=== PATIENT | male | born 1970 | race Caucasian/White ===

== ENCOUNTER 2016-08-06 07:07 | Day surgery (SDC) | payer BC ==
[2016-08-06] VITALS (8 sets, daily range): BP systolic 114–125; BP diastolic 75–83
[~2016-08-06] VITALS: Ht 182.9 cm; Wt 88.5 kg
[~2016-08-06 07:07] MED LIST: NEXIUM40 MG ORAL; TYLENOL650 MG/20. ORAL
[2016-08-06] MEDS ORDERED: NKM (07:38)
--- NOTE | 2016-08-06 09:29 | Pre-Procedure Note/Attestation ---
Pre-Procedure Note/Attestation Complete Prior to Procedure Planned Procedure: not applicable Procedure Narrative: colonoscopy Indications for Procedure Pre-Operative Diagnosis: h/o colon polyps Attestation I attest that I discussed the nature of the procedure; its benefits; risks and complications; and alternatives (and the risks and benefits of such alternatives ), prior to the procedure, with the patient (or the patient's legal operations support representative). I attest that, if there was a reasonable possibility of needing a blood transfusion, the patient (or the patient's legal operations support representative) was given the [facility] standardized written summary, pursuant to the [place] Blood Safety Act ([place] Health and Safety Code # 1645, as amended). I attest that I re-evaluated the patient just prior to the surgery and that there has been no change in the patient's H&P, except as documented below: ZULEIMA BREWER August 06, 2016 09:29
[2016-08-06] MEDS ORDERED: Propofol 10mg/ml 20ml IV ONE (09:30)
--- NOTE | 2016-08-06 09:30 | Short Stay Surgery H&P ---
History of Present Illness History of Present Illness Chief Complaint h/o colon polyps HPI Herminio Jaimes is a 46 year old male who was admitted on for Colon Screening Patient History Allergies: Coded Allergies: NO KNOWN DRUG ALLERGIES (Verified Allergy, Unknown, 10/09/14) PAST MEDICAL HISTORY: (1) Colon polyp (2) Submucosal lesion of esophagus Past Surgeries: Social History: Medication History Scheduled No Known Medications* (NKM - No Known Medications*), 0 ., (Reported) Discontinued Medications Acetaminophen (Acetaminophen), 650 MG ORAL Q6H PRN for Prn Headache/Temp > 101, (Reported) Discontinued Reason: Pt stopped taking med Esomeprazole Magnesium (Nexium), 40 MG ORAL DAILY, (Reported) Discontinued Reason: Pt stopped taking med Review of Systems Cardiovascular: Reports: no symptoms Respiratory: Reports: no symptoms Skeletal: Reports: no symptoms Gastrointestinal: Reports: no symptoms Genitourinary: Reports: no symptoms Neurologic: Reports: no symptoms Endocrine: Reports: no symptoms Hematologic: Reports: no symptoms Physical Exam Vital Signs Last Vital Signs Date Time Temp Pulse Resp B/P Pulse Ox O2 Delivery O2 Flow Rate FiO2 08/06/16 07:32 97.4 65 18 125/83 100 Room Air Skin: normal HENT: normal Heart: normal Lungs: normal Abdomen: normal Extremities: normal Plan Plan of Care colonoscopy Final Diagnosis: Attestation Are the patient's medical conditions optimized for surgery? Attestation Response: yes ZULEIMA BREWER August 06, 2016 09:30
--- NOTE | 2016-08-06 09:53 | Anethesia Preoperative Eval ---
Anesthesia Pre-op PMH/ROS General Date of Evaluation: August 06, 2016 Time of Evaluation: 09:32 Anesthesiologist: kwabena ASA Score: ASA 2 Mallampati Score Class I : Soft palate, uvula, fauces, pillars visible Class II: Soft palate, uvula, fauces visible Class III: Soft palate, base of uvula visible Class IV: Only hard plate visible Mallampati Classification: Class II Surgeon: ricky Diagnosis: hx colon polyps Surgical Procedure: colonoscopy Anesthesia History: none Allergies: Coded Allergies: NO KNOWN DRUG ALLERGIES (Verified Allergy, Unknown, 10/09/14) Past Medical History Cardiovascular: Reports: arrhythmia - PVCs Gastrointestinal/Genitourinary: Reports: other - gastric ulcer Anesthesia Pre-op Phys. Exam Physician Exam Last Vital Signs Date Time Temp Pulse Resp B/P Pulse Ox O2 Delivery O2 Flow Rate FiO2 08/06/16 07:32 97.4 65 18 125/83 100 Room Air Airway Exam Mallampati Score: Class II Teeth: intact Anesthesia Pre-op A/P Risk Assessment & Plan Plan: propofol Status Change Before Surgery: Juan Daniel Rodriguez MD August 06, 2016 09:53
--- NOTE | 2016-08-06 09:54 | Immediate Post-Op Evaluation ---
Immediate Post-Op Evalulation Immediate Post-Op Evalulation Date of Evaluation: August 06, 2016 Time of Evaluation: 10:15 IV Fluids: 600 Blood Pressure Systolic: 124 Blood Pressure Diastolic: 73 Pulse Rate: 48 Respiratory Rate: 16 O2 Sat by Pulse Oximetry: 100 Temperature (Fahrenheit): 97.4 Pain Score (1-10): 0 Nausea: No Vomiting: No Complications none Patient Status: awake, patent, none Hydration Status: adequate Juan Daniel Ventura MD August 06, 2016 09:54
--- NOTE | 2016-08-06 09:55 | 48 Hour Post Anesthesia Eval ---
Post Anesthesia Evaluation Date of Evaluation: August 06, 2016 Time of Evaluation: 10:30 Blood Pressure Systolic: 122 0: 75 Pulse Rate: 49 Respiratory Rate: 20 Temperature (Fahrenheit): 97.4 O2 Sat by Pulse Oximetry: 100 Airway: patent Nausea: No Vomiting: No Pain Intensity: 0 Hydration Status: adequate Cardiopulmonary Status: stable Mental Status/LOC: patient returned to baseline Follow-up Care/Observations: n/a Post-Anesthesia Complications: tolerated well Follow-up care needed: ready to discharge Juan Daniel Ventura MD August 06, 2016 09:55
--- NOTE | 2016-08-06 10:00 | Endoscopy Procedure Note ---
Endoscopy Procedure Note Indication for Procedure: colon polyps Procedures Performed: colonoscopy Operative Findings/Diagnosis: one polyp Specimen: yes Pt Tolerated Procedure Well: Yes Estimated Blood Loss: none Anesthesiologist: kwabena Anesthesia: MAC Implant(s) used?: No 50 yrs or older w/o bx or poly: No 10yrs. F/U not recommended: Yes If not recommended, why?: Above average risk 10 yrs. F/U needed: Yes 18 years or older w/prev. colo: Yes <3yrs. since last colonoscopy: No ZULEIMA BREWER August 06, 2016 10:00
--- NOTE | 2016-08-06 19:01 | Procedure Note ---
DATE OF PROCEDURE: 08/06/2016 SURGEON: Sammy Guerrero M.D. PROCEDURE: Colonoscopy with biopsy. ANESTHESIOLOGIST: Juan Daniel Ventura M.D. INSTRUMENT: Olympus adult flexible colonoscope. INDICATION: History of colonic polyps. REASON FOR PROCEDURE: The procedure, risks, benefits, and possible consequences, including hemorrhage, aspiration, perforation and infection, and alternative treatments, were explained to the patient/legal guardian by Dr. Smamy Guerrero and the patient/legal guardian understood and accepted these risks. DESCRIPTION OF PROCEDURE: After informed consent was obtained and the patient was adequately sedated, Olympus upper endoscope was advanced from mouth into the second portion of duodenum and retroflexion was performed in the stomach. The patient had evidence of diverticulosis in the left colon and in the rectum, there was one diminutive polyp in the rectum, which was removed. Retroflexion of rectum showed evidence of few small nonbleeding internal hemorrhoids. The patient tolerated the procedure well without any complication. Quality of prep was very good. SUMMARY OF FINDINGS: 1. Internal hemorrhoids. 2. One colonic polyp removed, see above for details. 3. Diverticulosis. RECOMMENDATIONS: 1. Follow up biopsies and treat accordingly. 2. We will recommend repeat colonoscopy in five years. Sammy Guerrero M.D. DR: YOSSI JOB#: [id number] CC:
== END 2016-08-06 11:00 | disposition home or self-care (01) ==
LOC: GAS 07:07
DX: Z12.11 Encounter for screening for malignant neoplasm of colon (principal); K62.1 Rectal polyp; K64.8 Other hemorrhoids; Z86.010 Personal history of colon polyps; K57.30 Diverticulosis of large intestine without perforation or abscess without bleeding; I49.3 Ventricular premature depolarization; Z87.11 Personal history of peptic ulcer disease
CPT/HCPCS: 45380; J2704; 94003; 94150

== ENCOUNTER 2019-05-30 07:34 | Day surgery (SDC) | payer BC ==
[2019-05-30] VITALS (10 sets, daily range): BP systolic 101–126; BP diastolic 56–90
[~2019-05-30] VITALS: Ht 182.9 cm; Wt 86.2 kg
[~2019-05-30 07:34] MED LIST changes: +LR 1000ml 1,000 ML IVLG SCH; +NKM
[2019-05-30] MEDS ORDERED: Midazolam 2mg/2ml Inj ONE (07:43)
[2019-05-30] MEDS ORDERED: fentaNYL 100 mcg/2 mL IV ONE (07:43)
[2019-05-30] MEDS ORDERED: PRAVASTATIN SOD20 M1 ORAL (08:16)
--- NOTE | 2019-05-30 08:56 | Pre-Procedure Note/Attestation ---
Pre-Procedure Note/Attestation Complete Prior to Procedure Planned Procedure: not applicable Procedure Narrative: esophagogastroduodenoscopy and colonoscopy Indications for Procedure Pre-Operative Diagnosis: screening colon, GERD Attestation I attest that I discussed the nature of the procedure; its benefits; risks and complications; and alternatives (and the risks and benefits of such alternatives ), prior to the procedure, with the patient (or the patient's legal development representative). I attest that, if there was a reasonable possibility of needing a blood transfusion, the patient (or the patient's legal development representative) was given the [facility] standardized written summary, pursuant to the [place] Blood Safety Act ([place] Health and Safety Code # 1645, as amended). I attest that I re-evaluated the patient just prior to the surgery and that there has been no change in the patient's H&P, except as documented below: Sammy Guerrero MD May 30, 2019 08:56
--- NOTE | 2019-05-30 08:58 | Short Stay Surgery H&P ---
History of Present Illness History of Present Illness Chief Complaint screening colon, GERD HPI Herminio Jaimes is a 48 year old male who was admitted on for Screening And Gerd Patient History Allergies: Coded Allergies: NO KNOWN DRUG ALLERGIES (Verified Allergy, Unknown, 10/09/14) PAST MEDICAL HISTORY: (1) Submucosal lesion of esophagus (2) Colon polyp Medication History Scheduled No Known Medications* (NKM - No Known Medications*), 0 ., (Reported) Pravastatin Sod* (Pravastatin Sod*), 20 MG ORAL BEDTIME, (Reported) Review of Systems Cardiovascular: Reports: no symptoms Respiratory: Reports: no symptoms Skeletal: Reports: no symptoms Gastrointestinal: Reports: no symptoms Genitourinary: Reports: no symptoms Neurologic: Reports: no symptoms Endocrine: Reports: no symptoms Physical Exam Vital Signs Last Vital Signs Date Time Temp Pulse Resp B/P (MAP) Pulse Ox O2 Delivery O2 Flow Rate FiO2 05/30/19 08:29 Room Air 05/30/19 08:19 97.4 61 18 120/90 100 Skin: normal HENT: normal Heart: normal Lungs: normal Abdomen: normal Extremities: normal Plan Plan of Care esophagogastroduodenoscopy and colonoscopy Attestation Are the patient's medical conditions optimized for surgery? Attestation Response: yes Sammy Guerrero MD May 30, 2019 08:58
[2019-05-30] MEDS ORDERED: Propofol 200mg/20ml IV ONE (09:00)
[2019-05-30] MEDS ORDERED: LR 1000ml ONE (09:00)
[2019-05-30] MEDS ORDERED: LR 1000ml 1,000 ML IVLG SCH (09:31)
--- NOTE | 2019-05-30 09:31 | Anethesia Preoperative Eval ---
Anesthesia Pre-op PMH/ROS General Date of Evaluation: May 30, 2019 Time of Evaluation: 08:50 Anesthesiologist: Abbey ASA Score: ASA 2 Mallampati Score Class I : Soft palate, uvula, fauces, pillars visible Class II: Soft palate, uvula, fauces visible Class III: Soft palate, base of uvula visible Class IV: Only hard plate visible Mallampati Classification: Class II Surgeon: Cesar Diagnosis: GERD Surgical Procedure: EGD Colonoscopy Anesthesia History: none Family History: no anesthesia problems Allergies: Coded Allergies: NO KNOWN DRUG ALLERGIES (Verified Allergy, Unknown, 10/09/14) Medications: see eMAR Patient NPO?: Yes Past Medical History Cardiovascular: Denies: HTN, CAD, [place], valve dz, arrhythmia, other Pulmonary: Denies: asthma, COPD, AKUA, other Gastrointestinal/Genitourinary: Reports: GERD, other - colonic polyps; Denies: CRI, ESRD Neurologic/Psychiatric: Denies: dementia, CVA, depression/anxiety, TIA, other Endocrine: Denies: DM, hypothyroidism, steroids, other HEENT: Denies: cataract (L), cataract (R), glaucoma, [place] (L), [place] (R), other Hematology/Immune: Denies: anemia, DVT, bleeding disorder, other Musculoskeletal/Integumentary: Denies: OA, RA, DJD, DDD, edema, other PMH Narrative: as above PSxH Narrative: Colonoscopy Anesthesia Pre-op Phys. Exam Physician Exam Last Vital Signs Date Time Temp Pulse Resp B/P (MAP) Pulse Ox O2 Delivery O2 Flow Rate FiO2 05/30/19 08:29 Room Air 05/30/19 08:19 97.4 61 18 120/90 100 Constitutional: NAD Neurologic: CN 2-12 intact Cardiovascular: RRR, no M/R/G Respiratory: CTA Gastrointestinal: S/NT/ND Airway Exam Mallampati Score: Class II MO: full Neck: flexible ROM: full Teeth: intact Dentures: no upper, no lower Anesthesia Pre-op A/P Labs see chart Studies Pre-op Studies: EKG - NSR Risk Assessment & Plan Assessment: ASA 2 Plan: MAC Status Change Before Surgery: César Kelly MD May 30, 2019 09:31
--- NOTE | 2019-05-30 09:39 | Endoscopy Procedure Note ---
Endoscopy Procedure Note General Indication for Procedure: screening colon, GRD Procedures Performed: EGD, colonoscopy Operative Findings/Diagnosis: duodenal polyp, diverticulosis Specimen: yes Pt Tolerated Procedure Well: Yes Estimated Blood Loss: none Anesthesia Anesthesiologist: mariah Anesthesia: MAC Inserted Devices Implant(s) used?: No Quality Quality of Bowel Preparation: Excellent Did scope reach the cecum?: Yes Was there any complications?: No GI Core Measures 50 yrs or older w/o bx or poly: No 10yrs. F/U recommended: Yes If not recommended, why?: Above average risk 18 years or older w/prev. colo: No Sammy Guerrero MD May 30, 2019 09:39
[2019-05-30] MEDS ORDERED: fentaNYL 100 mcg/2 mL IV PRN (09:45)
--- NOTE | 2019-05-30 09:48 | Immediate Post-Op Evaluation ---
Immediate Post-Op Evalulation Immediate Post-Op Evalulation Procedure: EGD polipectomy colonoscopy Date of Evaluation: May 30, 2019 Time of Evaluation: 09:47 IV Fluids: 800 Blood Products: none Estimated Blood Loss: none Urinary Output: none Blood Pressure Systolic: 116 Blood Pressure Diastolic: 58 Pulse Rate: 64 Respiratory Rate: 20 O2 Sat by Pulse Oximetry: 99 Temperature (Fahrenheit): 97.6 Pain Score (1-10): 1 Nausea: No Vomiting: No Complications none Patient Status: awake, patent, none Hydration Status: adequate César Potter MD May 30, 2019 09:48
--- NOTE | 2019-05-30 13:33 | 48 Hour Post Anesthesia Eval ---
Post Anesthesia Evaluation Procedure: EGD polipectomy colonoscopy Date of Evaluation: May 30, 2019 Time of Evaluation: 13:32 Blood Pressure Systolic: 116 0: 72 Pulse Rate: 68 Respiratory Rate: 18 Temperature (Fahrenheit): 97.6 O2 Sat by Pulse Oximetry: 98 Airway: patent Nausea: No Vomiting: No Pain Intensity: 2 Hydration Status: adequate Cardiopulmonary Status: stable Mental Status/LOC: patient returned to baseline Follow-up Care/Observations: n/a Post-Anesthesia Complications: none Follow-up care needed: ready to discharge César Potter MD May 30, 2019 13:33
--- NOTE | 2019-05-30 16:15 | Procedure Note ---
DATE OF PROCEDURE: 05/30/2019 SURGEON: Sammy Guerrero M.D. PROCEDURE: 1. Upper endoscopy with biopsy and polypectomy. 2. Colonoscopy. ANESTHESIA: Per Dr. Potter. INSTRUMENT: Olympus adult flexible upper endoscope and colonoscope. INDICATIONS: Screening colonoscopy evaluation, chronic GERD, history of esophageal submucosal lesion. REASON FOR PROCEDURE: The procedure, risks, benefits, and possible consequences, including hemorrhage, aspiration, perforation and infection, and alternative treatments, were explained to the patient/legal guardian by Dr. Sammy Guerrero and the patient/legal guardian understood and accepted these risks. PROCEDURE IN DETAIL: After informed consent was obtained and the patient was adequately sedated, Olympus upper endoscope was advanced from mouth into the second portion of duodenum and retroflexion was performed in the stomach. The patient had evidence of a submucosal lesion measured roughly about 5 mm to 6 mm at about 30 cm from the incisors, GE junction to be at 40, so about 2 cm above the GE junction. The patient also has evidence of diffuse gastritis. Random biopsy from antrum was obtained to rule out H. pylori infection. The patient had a duodenal polyp in the second portion of duodenum, seems to be across from the ampulla. This polyp measured roughly about 1.4 to 1.5 cm in size. Using a hot snare polypectomy technique, this polyp was successfully removed. It is questionable, there is a little bit of polyp or ampulla on the other side that we cannot see with this scope. At this time, the upper endoscope was retrieved and the patient was turned over for colonoscopy. First rectal exam was performed, which was positive for internal hemorrhoids. Then, the scope was advanced from the rectum into the cecum, then subsequently to terminal ileum. Quality of prep was excellent. The patient has some scattered diverticulosis, otherwise normal colonoscopy examination. Retroflexion of rectum showed evidence of internal hemorrhoids. SUMMARY OF FINDINGS: 1. Gastritis. 2. Esophageal submucosal lesion. 3. Duodenal polyp. 4. Diverticulosis of the left colon. 5. Internal hemorrhoids. RECOMMENDATIONS: Follow up pathology and treat accordingly. Repeat colonoscopy in 5 years. The patient needs a repeat endoscopy with a side-viewing scope for evaluating the ampulla and for evaluating possible more polyps in the second portion of duodenum. Sammyruslan Guerrero M.D. DR: SIDNEY JOB#: [id number] CC:
== END 2019-05-30 11:15 | disposition home or self-care (01) ==
LOC: GAS 07:34
DX: Z12.11 Encounter for screening for malignant neoplasm of colon (principal); K21.9 Gastro-esophageal reflux disease without esophagitis; K22.9 Disease of esophagus, unspecified; K31.7 Polyp of stomach and duodenum; K57.90 Diverticulosis of intestine, part unspecified, without perforation or abscess without bleeding; K64.8 Other hemorrhoids; Z86.010 Personal history of colon polyps
CPT/HCPCS: 43239; 43251; 45380; 93005; J2250; J2704; J3010; J7120; 94003; 94150

== ENCOUNTER 2019-09-12 07:32 | Day surgery (SDC) | payer BC, SELFPAY ==
[2019-09-12] VITALS (8 sets, daily range): BP systolic 104–132; BP diastolic 71–87
[~2019-09-12] VITALS: Ht 182.9 cm; Wt 86.2 kg
[~2019-09-12 07:32] MED LIST changes: -LR 1000ml 1,000 ML IVLG SCH; +PRAVASTATIN SOD20 M1 ORAL
--- NOTE | 2019-09-12 09:27 | Pre-Procedure Note/Attestation ---
Pre-Procedure Note/Attestation Complete Prior to Procedure Planned Procedure: not applicable Procedure Narrative: egd Indications for Procedure Pre-Operative Diagnosis: duodenal polyp Attestation I attest that I discussed the nature of the procedure; its benefits; risks and complications; and alternatives (and the risks and benefits of such alternatives ), prior to the procedure, with the patient (or the patient's legal door to door sales representative). I attest that, if there was a reasonable possibility of needing a blood transfusion, the patient (or the patient's legal door to door sales representative) was given the [facility] standardized written summary, pursuant to the [place] Blood Safety Act ([place] Health and Safety Code # 1645, as amended). I attest that I re-evaluated the patient just prior to the surgery and that there has been no change in the patient's H&P, except as documented below: Sammy Guerrero MD Sep 12, 2019 09:27
--- NOTE | 2019-09-12 09:28 | Short Stay Surgery H&P ---
History of Present Illness History of Present Illness Chief Complaint duodenal polyp CYNTHIA Jaimes is a 49 year old male who was admitted on for GERD Patient History Allergies: Coded Allergies: NO KNOWN DRUG ALLERGIES (Verified Allergy, Unknown, 09/06/19) PAST MEDICAL HISTORY: (1) Colon polyp (2) Submucosal lesion of esophagus Medication History Scheduled Pravastatin Sod* (Pravastatin Sod*), 40 MG ORAL BEDTIME, (Reported) Review of Systems Cardiovascular: Reports: no symptoms Respiratory: Reports: no symptoms Skeletal: Reports: no symptoms Gastrointestinal: Reports: no symptoms Genitourinary: Reports: no symptoms Neurologic: Reports: no symptoms Endocrine: Reports: no symptoms Physical Exam Vital Signs Last Vital Signs Date Time Temp Pulse Resp B/P (MAP) Pulse Ox O2 Delivery O2 Flow Rate FiO2 09/12/19 08:10 97.1 16 18 118/78 98 Room Air Skin: normal HENT: normal Heart: normal Lungs: normal Abdomen: normal Extremities: normal Plan Plan of Care egd Attestation Are the patient's medical conditions optimized for surgery? Attestation Response: yes Sammy Guerrero MD Sep 12, 2019 09:28
[2019-09-12] MEDS ORDERED: LR 1000ml ONE (09:30)
[2019-09-12] MEDS ORDERED: Lidocaine 1% MPF 10mg/ml 5ml ONE (09:30)
--- NOTE | 2019-09-12 10:08 | Immediate Post-Op Evaluation ---
Immediate Post-Op Evalulation Immediate Post-Op Evalulation Procedure: egd Date of Evaluation: Sep 12, 2019 Time of Evaluation: 10:08 IV Fluids: 300 Blood Pressure Systolic: 113 Blood Pressure Diastolic: 73 Pulse Rate: 65 Respiratory Rate: 14 O2 Sat by Pulse Oximetry: 99 Temperature (Fahrenheit): 97.5 Nausea: No Vomiting: No Patient Status: awake, reacts, patent Hydration Status: adequate Drug: declined Danna Bal CRNA Sep 12, 2019 10:08
--- NOTE | 2019-09-12 10:13 | Anethesia Preoperative Eval ---
Anesthesia Pre-op PMH/ROS General Date of Evaluation: Sep 12, 2019 Time of Evaluation: 09:28 Anesthesiologist: luis ASA Score: ASA 2 Mallampati Score Class I : Soft palate, uvula, fauces, pillars visible Class II: Soft palate, uvula, fauces visible Class III: Soft palate, base of uvula visible Class IV: Only hard plate visible Mallampati Classification: Class II Surgeon: ricky Diagnosis: GERD Surgical Procedure: EGD Family History: no anesthesia problems Allergies: Coded Allergies: NO KNOWN DRUG ALLERGIES (Verified Allergy, Unknown, 09/06/19) Medications: see eMAR Patient NPO?: Yes NPO Date: Sep 12, 2019 NPO Time: 00:01 Past Medical History Cardiovascular: Denies: HTN, CAD, [place], valve dz, arrhythmia, other Pulmonary: Denies: asthma, COPD, AKUA, other Gastrointestinal/Genitourinary: Reports: GERD; Denies: CRI, ESRD, other Neurologic/Psychiatric: Denies: dementia, CVA, depression/anxiety, TIA, other Endocrine: Denies: DM, hypothyroidism, steroids, other HEENT: Denies: cataract (L), cataract (R), glaucoma, [place] (L), [place] (R), other Hematology/Immune: Denies: anemia, DVT, bleeding disorder, other PSxH Narrative: colonoscopy Anesthesia Pre-op Phys. Exam Physician Exam Last Vital Signs Date Time Temp Pulse Resp B/P (MAP) Pulse Ox O2 Delivery O2 Flow Rate FiO2 09/12/19 08:10 97.1 16 18 118/78 98 Room Air Constitutional: NAD Neurologic: CN 2-12 intact Cardiovascular: RRR Respiratory: CTA Gastrointestinal: S/NT/ND Airway Exam Mallampati Classification 2 Mallampati Score: Class II MO: full ROM: full Dentures: no upper, no lower Danna Bal CRNA Sep 12, 2019 10:13
--- NOTE | 2019-09-12 11:00 | Endoscopy Procedure Note ---
Endoscopy Procedure Note General Indication for Procedure: duodenal polyp Procedures Performed: EGD Operative Findings/Diagnosis: same Specimen: yes Pt Tolerated Procedure Well: Yes Estimated Blood Loss: none Anesthesia Anesthesiologist: fernanda Anesthesia: MAC Inserted Devices Implant(s) used?: No GI Core Measures 50 yrs or older w/o bx or poly: Not Applicable 10yrs. F/U recommended: Not Applicable Sammy Guerrero MD Sep 12, 2019 10:59
--- NOTE | 2019-09-12 12:18 | 48 Hour Post Anesthesia Eval ---
Post Anesthesia Evaluation Procedure: egd Date of Evaluation: Sep 12, 2019 Time of Evaluation: 12:18 Blood Pressure Systolic: 132 0: 76 Pulse Rate: 54 Respiratory Rate: 14 O2 Sat by Pulse Oximetry: 98 Airway: patent Nausea: No Vomiting: No Cardiopulmonary Status: stable Mental Status/LOC: patient returned to baseline Post-Anesthesia Complications: none Follow-up care needed: N/A Danna Bal CRNA Sep 12, 2019 12:18
--- NOTE | 2019-09-12 14:15 | Procedure Note ---
DATE OF PROCEDURE: 09/12/2019 SURGEON: Sammy Guerrero MD PROCEDURE: Upper endoscopy with biopsy and removal of the duodenal polyp. REASON FOR PROCEDURE: The procedure, risks, benefits, and possible consequences, including hemorrhage, aspiration, perforation and infection, and alternative treatments, were explained to the patient/legal guardian by Dr. Sammy Guerrero and the patient/legal guardian understood and accepted these risks. PROCEDURE IN DETAIL: After informed consent was obtained and the patient was adequately sedated, Olympus upper endoscope was advanced from mouth to the second portion of the duodenum and retroflexion was performed in the stomach. The patient had a small distal esophageal submucosal lesion which was evaluated before. Stomach looks grossly within normal limits. In the duodenum, there was a polyp at the second portion of the duodenum. At this time, we removed the upper endoscope and side-view scope was introduced. Ampulla was examined, which looked normal without any periampullary mass or ampullary lesion. There was a polyp in the second portion of duodenum which using a biopsy forceps through the ERCP scope, we biopsied this polyp. 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 At this time, the upper endoscope was retrieved and procedure was terminated. SUMMARY OF FINDINGS: 1. Distal esophageal submucosal lesion. 2. Duodenal polyp, status post biopsy, examining by both regular scope and side-view scope. RECOMMENDATIONS: Follow biopsy results and treat accordingly. Sammy Guerrero M.D. DR: SIDNEY JOB#: [id number] CC:
== END 2019-09-12 11:15 | disposition home or self-care (01) ==
LOC: GAS 07:32
DX: K31.7 Polyp of stomach and duodenum (principal); K22.9 Disease of esophagus, unspecified; K21.9 Gastro-esophageal reflux disease without esophagitis; Z86.010 Personal history of colon polyps
CPT/HCPCS: 43239; 43261; 93005; 94003; J2704; J7120; 94150